=== PATIENT | female | born 1945 | race Caucasian/White ===

== ENCOUNTER → 2017-07-23 | Outpatient (CLI) | payer OTHER, SELFPAY ==
[~2017-07-23] MED LIST: ALBU90OI; ALBU90OI6 INH; AMLO5 PO; AMOCLA875; ASPI325; Amaryl1 MG; Amaryl1 MG PO; CALCA500CH; CHOL10002 PO; CLOP75; CLOP75 PO; CRANBERRY PLUS1 EAC1 PO; CYAN1000 PO; CYCL10 PO; DULO30; DULO60 PO; ETOD400 PO; Econazole Nitra15 GM; FISH1000; FURO20; FURO40 PO; Flovent Diskus50 MCG; Flovent Diskus50 MCG IH; HYDACE5 PO; IBUHYD; K-Dur20 MEQ PO; LORA10; MAGCHL64ER PO; METF500; METF500C PO; OMEP10ER; OMEP20ER; Omeprazole20 M1 PO; POTCHL10ER; Penlac6.6 ML; Super Calcium600 MG PO; TRAM50; TRAM50 PO; VICODIN 5-3001 EACH; VICODIN 5-3001 EACH PO; Ventolin Soln3 ML INH
[2017-07-23 14:19] LABS: BASOPHILS ABSOLUTE AUTO 0.02 K/mm3 (0.00-0.23); BASOPHILS PERCENT AUTO 0 % (0-2); EOSINOPHILS ABSOLUTE AUTO 0.05 K/mm3 (0.00-0.68); EOSINOPHILS PERCENT AUTO 1 % (0-6); Hematocrit 38.2 % (33.0-51.0); Hemoglobin 12.8 g/dL (11.5-16.0); IMMATURE GRAN ABSOLUTE AUTO 0.02 K/mm3 (0.00-0.10); IMMATURE GRAN PERCENT AUTO 0 % (0-1); LYMPHOCYTES ABSOLUTE AUTO 2.31 K/mm3 (0.84-5.20); LYMPHOCYTES PERCENT AUTO 33 % (21-46); MONOCYTES ABSOLUTE AUTO 0.71 K/mm3 (0.16-1.47); MONOCYTES PERCENT AUTO 10 % (4-13); Mean Corpuscular HGB 30.3 pg (26.0-34.0); Mean Corpuscular HGB Conc 33.5 g/dL (31.5-36.5); Mean Corpuscular Volume 90 fL (80-100); Mean Platelet Volume 10.8 fL (9.1-12.4); NEUTROPHILS ABSOLUTE AUTO 3.94 K/mm3 (1.96-9.15); NEUTROPHILS PERCENT AUTO 56 % (41-73); Platelet Count 437 K/mm3 (150-400); RDW Coefficient Variation 13.4 % (11.7-14.2); RDW Standard Deviation 44.1 fL (35.1-46.3); Red Blood Cell Count 4.23 M/mm3 (3.80-5.20); White Blood Cell Count 7.05 K/mm3 (4.00-11.30)
[2017-07-23 14:24] LABS: Bun/Creatinine Ratio 10.8 (12.0-20.0); Calcium, Blood 9.8 mg/dL (8.5-10.1); Creatinine, Blood 1.02 mg/dL (0.40-1.00); Potassium, Blood 4.2 mmol/L (3.5-5.5)
== END | disposition home or self-care (01) ==
LOC: LAB EV 14:14
PROVIDERS: Family Medicine
DX: N39.0 Urinary tract infection, site not specified (principal); R05 Cough
CPT/HCPCS: 80048; 85025; 87077; 87086; 87186

== ENCOUNTER 2018-07-25 11:53 | Day surgery (SDC) | payer OTHER, SELFPAY ==
[~2018-07-25] VITALS: Ht 152.4 cm; Wt 62.6 kg
[~2018-07-25 11:53] MED LIST changes: -CYAN1000 PO; +CYAN500 PO; +GABA300 PO; +LOSA25 PO; +Multiple Vitam1 EAC1 PO; +TURMERIC PO
--- NOTE | 2018-07-25 15:16 | NUR ---
ARRIVED FORM PACU VSS GIVEN COFFEE FETCHED FOR PATIENT.
--- NOTE | 2018-07-25 15:33 | NUR ---
GIVEN RX PER REQUEST FOR PAIN AT [facility] TIME RATES PAIN 09/22
--- NOTE | 2018-07-25 15:58 | NUR ---
DISCHARGED AT THIS TIME WITH ALL BELONGINGS AND DISCHARGE INSTRUCTIONS PATIENT TO RESTART PLAVIX TOMORROW PER DOCTOR AFTER CLARIFICATION. ESCORTED OUT WITH RN IN WHEEL CHAIR
== END 2018-07-25 22:44 | disposition home or self-care (01) ==
LOC: ORSCMMR 11:53 → ORD 13:15 → ORSCMMR 13:15 → ORD 16:00 → ORSCMMR 22:44
PROVIDERS: Orthopaedic Surgery
PROC: 0SBD4ZZ Excision of Left Knee Joint, Percutaneous Endoscopic Approach (ICD-10-PCS; principal; 2018-07-25 13:15)
DX: M23.222 Derangement of posterior horn of medial meniscus due to old tear or injury, left knee (principal); M23.201 Derangement of unspecified lateral meniscus due to old tear or injury, left knee; M22.42 Chondromalacia patellae, left knee; M17.12 Unilateral primary osteoarthritis, left knee; I10 Essential (primary) hypertension; J44.9 Chronic obstructive pulmonary disease, unspecified; K21.9 Gastro-esophageal reflux disease without esophagitis; E11.9 Type 2 diabetes mellitus without complications; Z79.899 Other long term (current) drug therapy
CPT/HCPCS: 82947; J0171; J0330; J0690; J1100; J2250; J2405; J2710; J3010; J7120

== ENCOUNTER 2018-09-01 09:42 | Inpatient (IN) | payer OTHER ==
[~2018-09-01] VITALS: Ht 154.9 cm; Wt 63.5 kg
[2018-09-01 10:42] LABS: BASOPHILS ABSOLUTE AUTO 0.02 K/mm3 (0.00-0.23); BASOPHILS PERCENT AUTO 0 % (0-2); EOSINOPHILS ABSOLUTE AUTO 0.09 K/mm3 (0.00-0.68); EOSINOPHILS PERCENT AUTO 1 % (0-6); Hematocrit 37.9 % (33.0-51.0); Hemoglobin 12.2 g/dL (11.5-16.0); IMMATURE GRAN ABSOLUTE AUTO 0.03 K/mm3 (0.00-0.10); IMMATURE GRAN PERCENT AUTO 0 % (0-1); LYMPHOCYTES ABSOLUTE AUTO 1.83 K/mm3 (0.84-5.20); LYMPHOCYTES PERCENT AUTO 26 % (21-46); MONOCYTES ABSOLUTE AUTO 0.67 K/mm3 (0.16-1.47); MONOCYTES PERCENT AUTO 10 % (4-13); Mean Corpuscular HGB 29.7 pg (26.0-34.0); Mean Corpuscular HGB Conc 32.2 g/dL (31.5-36.5); Mean Corpuscular Volume 92 fL (80-100); Mean Platelet Volume 10.9 fL (9.1-12.4); NEUTROPHILS ABSOLUTE AUTO 4.42 K/mm3 (1.96-9.15); NEUTROPHILS PERCENT AUTO 63 % (41-73); Platelet Count 362 K/mm3 (150-400); RDW Coefficient Variation 12.9 % (11.7-14.2); RDW Standard Deviation 43.8 fL (35.1-46.3); Red Blood Cell Count 4.11 M/mm3 (3.80-5.20); White Blood Cell Count 7.06 K/mm3 (4.00-11.30)
[2018-09-01 11:07] LABS: Alanine Aminotransfer (ALT/SGP 19 U/L (12-78); Albumin, Blood 3.7 g/dL (3.4-5.0); Albumin/Globulin Ratio 1.2 (0.8-1.8); Alk Phos 117 U/L (50-136); Anion Gap 10 mmol/L (6-16); Aspartate Aminotrans (AST/SGOT 14 U/L (12-37); Bilirubin, Total 0.8 mg/dL (0.1-1.0); Blood Urea Nitrogen 18 mg/dL (8-24); Bun/Creatinine Ratio 24.6 (12.0-20.0); CO2, Blood 25 mmol/L (21-32); Calcium, Blood 9.8 mg/dL (8.5-10.1); Chloride, Blood 103 mmol/L (98-108); Creatinine, Blood 0.73 mg/dL (0.40-1.00); Globulin, Blood 3.2 g/dL (2.2-4.0); Glomerular Filtration Rate >60 (60-); Glucose, Blood 250 mg/dL (70-99); Potassium, Blood 4.3 mmol/L (3.5-5.5); Sodium, Blood 138 mmol/L (136-145); Total Protein, Blood 6.9 g/dL (6.4-8.2); Troponin I <0.015 ng/mL (0.000-0.040)
[2018-09-01 12:07] LABS: Source, Urine Clean Catch
[2018-09-01 12:15] LABS: Blood, Urine Neg (Neg); Glucose Qualitative, Urine 1+ (Neg); Ketones, Urine Neg (Neg); Leukocyte Esterase, Urine 1+ (Neg); Nitrite, Urine Neg (Neg); Protein, Urine Neg (Neg); Urobilinogen, Urine NORM (Normal); pH, Urine 6.5 (5.0-8.0)
[2018-09-01 12:24] LABS: Appearance, Urine Clear (Clear); Color, Urine Pale Yellow (P-Yellow)
[2018-09-01 12:27] LABS: Bacteria Rare /hpf; Red Blood Cells, Urine Rare /hpf (0-2); Squamous Epithelial Cells Many /hpf (Few)
[2018-09-01] MEDS ORDERED: CINNAMON PO (13:34)
--- NOTE | 2018-09-01 14:41 | NUR ---
MRI FAXED MRI SHEET TO MRI. STAFF EHRE TO TAKE HER BY W/C TO SCAN. PT ALERT AND COMFORTABLE WITH GOING INTO MRI. CONTINUE POT.
[2018-09-01] MEDS ORDERED: PRAM.125 PO (20:16)
--- NOTE | 2018-09-01 21:21 | NUR ---
PROVIDER CONTACTED- PT REQUESTING HOME DOSE OF MIRAPEX. RAUL JIMENEZ CONTACTED AND ORDERS RECEIVED FOR MIRAPEX DAILY PRN, TAKEN AT HOME.
[2018-09-01] MEDS ORDERED: Omeprazole20 M1 (22:01)
--- NOTE | 2018-09-01 23:00 | NUR ---
PROVIDER CONTACTED PT ALSO REQUESTING HOME DOSE OF OMEPRAZOLE FOR AM WELL ANTACIDS PRN. RAUL JIMENEZ CONTACTED AND ORDERS RECEIVED.
[2018-09-02 05:05] LABS: CHOL/HDL RATIO 4.5; Cholesterol 196 mg/dL (50-200); HDL Cholesterol 44 mg/dL (>39); LDL/HDL RATIO 2.3; Low Density Lipoprotein Chol 100 mg/dL (0-110); Triglycerides 261 mg/dL (30-160); Very Low Density Lipoprot Chol 52 mg/dL (6-32)
--- NOTE | 2018-09-02 06:23 | NUR ---
SHIFT SUMMARY- PT HAS REMAINED AOX4 THROUGHOUT SHIFT. PLEASANT AND COOPERATIVE WITH CARE. BLOOD PRESSURE HYPERTENSIVE THROUGHOUT MUCH OF THE NIGHT, BUT DECREASED THIS AM. ALL OTHER VSS. PT REPORTED SOME HEARTBURN LAST NIGHT THAT DECREASED AFTER DRINKING SOME MILK. STRENGTH IN R LEG AND R HAND HAVE IMPROVED THROUGHOUT THE NIGHT, R FACIAL DROOP STILL NOTED WELL SLURRED SPEECH. PERRLA. DENIES DIZZINESS, LIGHTHEADEDNESS. PT CONTINUES TO AMBULATE WITH ONE PERSON ASSIST TO THE RESTROOM BUT IS UNSTEADY ON HER FEET. PT ENCOURAGED TO CALL FOR ASSISTANCE WITH AMBULATION- INFORMED THAT BED ALARM WILL BE SET FOR HER SAFETY. NO OTHER CHANGES NOTED FROM INITIAL ASSESSMENT. WILL CONTINUE TO MONITOR AND REPORT TO ONCOMING SHIFT RN. BED IN LOW POSITION, CALL LIGHT IN REACH, BED ALARM SET FOR SAFETY.
--- NOTE | 2018-09-02 10:46 | NUR ---
ECHOCARDIOGRAM COMPLETE
--- NOTE | 2018-09-02 11:05 | NUR ---
NEURO. CONSULT CALLED WITH CONSULT REQUEST TO NEURO CLINIC. LEFT A MESSAGE LAST EVENING ON THE MACHINE INSTRUCTED. CALLED THIS AM AT 0940 TO DOUBLE CHECK RECEIPT OF THE CONSULT AND TO INQUIRE ABOUT AVAILABILITY OF DR ZUNIGA. LEFT A SECOND MESSAGE. RECALLED AT 1102. NO ANSWER AT THE CLINIC. WILL CONTINUE TO CALL. CONTINUE POT.
--- NOTE | 2018-09-02 11:07 | NUR ---
CAROT[facility] U/S ASKED FOR A STAT READ LAST NIGHT. NO RESULTS THIS AM. CALLED RADIOLOGY AND ASKED TO HAVE IT READ. TECH WAS GOING TO PUSH TO DR AYALA TO READ. THAT WAS ABOUT 0730. NO RESULTS YET. CONTINUE POT.
--- NOTE | 2018-09-02 15:04 | NUR ---
[facility] and provide care.
--- NOTE | 2018-09-02 18:39 | NUR ---
DR NADIA ZUNIGA CALLED. 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 LET DR MEHTA KNOW THAT HE WILL NOT BE ACCEPTING THE CONSULT. CONTINUE POT.
--- NOTE | 2018-09-02 18:40 | NUR ---
BOWEL CARE PT HAS NOT HAD A BM IN A DAY. SPOUCE REQUESTED THAT SHE RECEIVE PRUNE JUICE. GAVE PT A GLASS OF PRUNE JUICE AFTER DINNER. CONTINU EPOT.
[2018-09-03 04:21] LABS: BASOPHILS ABSOLUTE AUTO 0.03 K/mm3 (0.00-0.23); BASOPHILS PERCENT AUTO 0 % (0-2); EOSINOPHILS ABSOLUTE AUTO 0.21 K/mm3 (0.00-0.68); EOSINOPHILS PERCENT AUTO 2 % (0-6); Hematocrit 39.5 % (33.0-51.0); Hemoglobin 12.5 g/dL (11.5-16.0); IMMATURE GRAN ABSOLUTE AUTO 0.03 K/mm3 (0.00-0.10); IMMATURE GRAN PERCENT AUTO 0 % (0-1); LYMPHOCYTES ABSOLUTE AUTO 3.64 K/mm3 (0.84-5.20); LYMPHOCYTES PERCENT AUTO 41 % (21-46); MONOCYTES ABSOLUTE AUTO 1.31 K/mm3 (0.16-1.47); MONOCYTES PERCENT AUTO 15 % (4-13); Mean Corpuscular HGB Conc 31.6 g/dL (31.5-36.5); Mean Platelet Volume 10.8 fL (9.1-12.4); NEUTROPHILS ABSOLUTE AUTO 3.61 K/mm3 (1.96-9.15); NEUTROPHILS PERCENT AUTO 41 % (41-73); Platelet Count 358 K/mm3 (150-400); RDW Coefficient Variation 12.9 % (11.7-14.2); RDW Standard Deviation 44.7 fL (35.1-46.3); Red Blood Cell Count 4.16 M/mm3 (3.80-5.20); White Blood Cell Count 8.83 K/mm3 (4.00-11.30)
[2018-09-03 04:22] LABS: Mean Corpuscular Volume 95 fL (80-100)
[2018-09-03 04:44] LABS: Alanine Aminotransfer (ALT/SGP 29 U/L (12-78); Albumin, Blood 3.6 g/dL (3.4-5.0); Albumin/Globulin Ratio 1.1 (0.8-1.8); Alk Phos 124 U/L (50-136); Anion Gap 9 mmol/L (6-16); Aspartate Aminotrans (AST/SGOT 31 U/L (12-37); Bilirubin, Total 0.7 mg/dL (0.1-1.0); Blood Urea Nitrogen 19 mg/dL (8-24); Bun/Creatinine Ratio 25.5 (12.0-20.0); CO2, Blood 24 mmol/L (21-32); Calcium, Blood 9.7 mg/dL (8.5-10.1); Chloride, Blood 105 mmol/L (98-108); Creatinine, Blood 0.74 mg/dL (0.40-1.00); Globulin, Blood 3.4 g/dL (2.2-4.0); Glomerular Filtration Rate >60 (60-); Glucose, Blood 103 mg/dL (70-99); Potassium, Blood 4.3 mmol/L (3.5-5.5); Sodium, Blood 138 mmol/L (136-145)
--- NOTE | 2018-09-03 06:22 | NUR ---
SHIFT SUMMARY- PT HAS REMAINED AOX4 THROUGHOUT SHIFT. VSS. PLEASANT AND COOPERATIVE WITH CARE. PT CONTINUES TO AMBULATE WITH ONE PERSON ASSIST AND FWW, GAIT REMAINS UNSTEADY BUT HAS IMPROVED SINCE YESTERDAY. PUPILS REMAIN SLUGGISH BUT EQUALLY RESPONSIVE. EXTREMITY STRENGTH REMAINS EQUAL AND UNCHANGED THROUGHOUT SHIFT. PT DENIES DIZZINESS OR LIGHTHEADEDNESS. PT MEDICATED ONCE FOR LEG RESTLESSNESS AND GENERALIZED PAIN, BOTH OF WHICH RELIEVED WITH ORDERED MEDICATIONS. PT CONTINUES TO HAVE VISION FIELD DEFICITS. CONTINUES TO REQUIRE MUCH EDUCATION ON CURRENT CONDITION AND COURSE OF TREATMENT. PT WITH OCCASIONAL IRRITATION WHEN ATTEMPTS AT EDUCATION ARE MADE. PT HAS RESTED WELL THROUGHOUT MUCH OF THE NIGHT, WAKING EASILY FOR VITAL SIGNS AND CARE. NO OTHER CHANGES FROM INITIAL ASSESSMENT, WILL CONTINUE TO MONITOR AND REPORT TO ONCOMING SHIFT RN. BED IN LOW POSITION, CALL LIGHT IN REACH. BED ALARM SET FOR SAFETY.
--- NOTE | 2018-09-03 07:45 | NUR ---
INITIAL ASSESSMENT: Pt resting in bed with at bedside. LS Clear, HR reg, BT positive. Pulses palp. States that she has some numbness in BLE that is always there. Also states that she has some chronic pain in her back and groin. Will medicate per orders. R pupil slightly more sluggish then L but both reactive. Hand grasps = and strong. Planter flexion and extention = and strong. Poor balance when up. Poor peripheral vision. Pt has some slurred speach. Pt and state that this is not her normal speach. Pt is A/O x4. Pt up to chair after void with one person assist. Strong but poor balance. Will monitor.
[2018-09-03] MEDS ORDERED: ACET325 PO (16:12)
[2018-09-03] MEDS ORDERED: TUMS ULTRA ST1177 MG PO (16:14)
[2018-09-03] MEDS ORDERED: LIDOCAINE PAIN1 EACH TOP (16:15)
[2018-09-03] MEDS ORDERED: ASPI325 PO (16:15)
--- NOTE | 2018-09-03 16:45 | NUR ---
DISHCARGE: Pt had discharge orders to SNF and was accepted to facility. Transport set up and notified. Denies questions. IV discontinued, cath intact. Facility packet filled out. Pt denies questions. Called report to [facility]. Left via w/c. Stable at time of discharge.
== END 2018-09-03 16:44 | DRG 65 ==
LOC: ER 09:42 → PCU 09:43
PROVIDERS: Emergency Medicine; Hospitalist; ADMIT Internal Medicine
DX: I63.9 Cerebral infarction, unspecified (principal); G81.91 Hemiplegia, unspecified affecting right dominant side; I25.10 Atherosclerotic heart disease of native coronary artery without angina pectoris; I10 Essential (primary) hypertension; E11.65 Type 2 diabetes mellitus with hyperglycemia; E78.5 Hyperlipidemia, unspecified; J44.9 Chronic obstructive pulmonary disease, unspecified; M79.7 Fibromyalgia; G89.4 Chronic pain syndrome; M81.0 Age-related osteoporosis without current pathological fracture; K21.9 Gastro-esophageal reflux disease without esophagitis; F32.9 Major depressive disorder, single episode, unspecified; R47.81 Slurred speech; D51.0 Vitamin B12 deficiency anemia due to intrinsic factor deficiency; Z95.5 Presence of coronary angioplasty implant and graft; Z88.8 Allergy status to other drugs, medicaments and biological substances; Z79.84 Long term (current) use of oral hypoglycemic drugs; Z79.02 Long term (current) use of antithrombotics/antiplatelets; Z79.899 Other long term (current) drug therapy; Z87.891 Personal history of nicotine dependence
CPT/HCPCS: 36415; 70450; 70551; 80053; 80061; 81001; 82947; 83036; 84443; 84484; 85025; 87086; 92507; 92523; 93005; 93010; 93306; 93880; 97110; 97116; 97162; 97166; 97530; 97535; 99285-25; G0378; J1650

== ENCOUNTER 2018-10-04 18:14 | Emergency (ER) | payer OTHER ==
[~2018-10-04] VITALS: Ht 154.9 cm; Wt 63.5 kg
[~2018-10-04 18:14] MED LIST changes: +ACET325 PO; +ASPI325 PO; +CINNAMON PO; +LIDOCAINE PAIN1 EACH TOP; +Omeprazole20 M1; +PRAM.125 PO; +TUMS ULTRA ST1177 MG PO
[2018-10-04 20:04] LABS: BASOPHILS ABSOLUTE AUTO 0.04 K/mm3 (0.00-0.23); BASOPHILS PERCENT AUTO 0 % (0-2); EOSINOPHILS ABSOLUTE AUTO 0.01 K/mm3 (0.00-0.68); EOSINOPHILS PERCENT AUTO 0 % (0-6); Hemoglobin 11.7 g/dL (11.5-16.0); IMMATURE GRAN ABSOLUTE AUTO 0.12 K/mm3 (0.00-0.10); IMMATURE GRAN PERCENT AUTO 1 % (0-1); LYMPHOCYTES ABSOLUTE AUTO 1.05 K/mm3 (0.84-5.20); LYMPHOCYTES PERCENT AUTO 8 % (21-46); MONOCYTES ABSOLUTE AUTO 2.24 K/mm3 (0.16-1.47); MONOCYTES PERCENT AUTO 16 % (4-13); Mean Corpuscular HGB 30.5 pg (26.0-34.0); Mean Corpuscular HGB Conc 32.5 g/dL (31.5-36.5); Mean Corpuscular Volume 94 fL (80-100); Mean Platelet Volume 10.8 fL (9.1-12.4); NEUTROPHILS ABSOLUTE AUTO 10.58 K/mm3 (1.96-9.15); NEUTROPHILS PERCENT AUTO 75 % (41-73); Platelet Count 386 K/mm3 (150-400); RDW Coefficient Variation 13.4 % (11.7-14.2); Red Blood Cell Count 3.84 M/mm3 (3.80-5.20); White Blood Cell Count 14.04 K/mm3 (4.00-11.30)
[2018-10-04 20:23] LABS: Alanine Aminotransfer (ALT/SGP 29 U/L (12-78); Albumin, Blood 3.6 g/dL (3.4-5.0); Albumin/Globulin Ratio 0.9 (0.8-1.8); Alk Phos 177 U/L (50-136); Anion Gap 8 mmol/L (6-16); Aspartate Aminotrans (AST/SGOT 27 U/L (12-37); Bilirubin, Total 0.5 mg/dL (0.1-1.0); Blood Urea Nitrogen 18 mg/dL (8-24); Bun/Creatinine Ratio 21.2 (12.0-20.0); CO2, Blood 27 mmol/L (21-32); Calcium, Blood 9.8 mg/dL (8.5-10.1); Chloride, Blood 97 mmol/L (98-108); Creatinine, Blood 0.85 mg/dL (0.40-1.00); Globulin, Blood 3.9 g/dL (2.2-4.0); Glomerular Filtration Rate >60 (60-); Glucose, Blood 125 mg/dL (70-99); Potassium, Blood 4.3 mmol/L (3.5-5.5); Sodium, Blood 132 mmol/L (136-145); Total Protein, Blood 7.5 g/dL (6.4-8.2); Troponin I <0.015 ng/mL (0.000-0.040)
[2018-10-04 20:25] LABS: Acetaminophen, Random 20.1 ug/mL (10.0-30.0)
[2018-10-04 23:29] LABS: Influenza A Positive (NEGATIVE); Influenza B Negative (NEGATIVE)
[2018-10-05 00:04] LABS: Source, Urine Clean Catch
[2018-10-05 00:10] LABS: Bilirubin, Urine Neg (Neg); Blood, Urine Neg (Neg); Glucose Qualitative, Urine Neg (Neg); Ketones, Urine Neg (Neg); Leukocyte Esterase, Urine 1+ (Neg); Nitrite, Urine Neg (Neg); Protein, Urine Neg (Neg); Specific Gravity, Urine 1.005 (1.003-1.022); Urobilinogen, Urine NORM (Normal)
[2018-10-05 00:24] LABS: Appearance, Urine Clear (Clear); Color, Urine Yellow (P-Yellow)
[2018-10-05 00:25] LABS: Bacteria Rare /hpf; Red Blood Cells, Urine Not Seen /hpf (0-2); Squamous Epithelial Cells Few /hpf (Few); White Blood Cells, Urine Rare /hpf (0-5)
[2018-10-05] MEDS ORDERED: Tamiflu75 MG PO (00:31)
== END 2018-10-05 01:00 | disposition home or self-care (01) ==
LOC: ER 18:14
PROVIDERS: Emergency Medicine
DX: J10.1 Influenza due to other identified influenza virus with other respiratory manifestations (principal); R07.9 Chest pain, unspecified; Z88.8 Allergy status to other drugs, medicaments and biological substances; Z88.5 Allergy status to narcotic agent; Z88.1 Allergy status to other antibiotic agents; Z79.899 Other long term (current) drug therapy; Z79.84 Long term (current) use of oral hypoglycemic drugs; Z79.82 Long term (current) use of aspirin; E78.5 Hyperlipidemia, unspecified; I25.10 Atherosclerotic heart disease of native coronary artery without angina pectoris; F32.9 Major depressive disorder, single episode, unspecified; J45.909 Unspecified asthma, uncomplicated; Z87.891 Personal history of nicotine dependence
CPT/HCPCS: 36415; 71046; 80053; 81001; 83605; 83735; 83880; 84484; 85025; 87086; 87804; 93005; 93010; 94640; 96361; 96374; 96376; 99285-25; G0480; J1885; J7030

== ENCOUNTER → 2018-11-14 | Outpatient (CLI) | payer OTHER ==
[~2018-11-14] MED LIST changes: +Tamiflu75 MG PO
== END | disposition home or self-care (01) ==
LOC: LAB SHORT 12:47 → LAB EV 12:47
DX: R35.0 Frequency of micturition (principal)
CPT/HCPCS: 87077; 87086; 87186

== ENCOUNTER → 2019-07-08 | Outpatient (CLI) | payer OTHER | END | disposition home or self-care (01) | LOC: LAB SHORT 13:45 → LAB EV 13:45 | DX: R30.0 Dysuria (principal) | CPT/HCPCS: 87086 ==

== ENCOUNTER 2020-02-24 04:28 | Emergency (ER) | payer OTHER ==
[~2020-02-24] VITALS: Ht 152.4 cm; Wt 60.8 kg
[2020-02-24] MEDS ORDERED: Imdur30 MG PO (04:44)
[2020-02-24] MEDS ORDERED: OLMESARTAN MEDO20 MG PO (04:44)
[2020-02-24] MEDS ORDERED: NITROGLYCERIN0.4 M3 SL (04:44)
[2020-02-24 04:54] LABS: BASOPHILS ABSOLUTE AUTO 0.06 K/mm3 (0.00-0.23); BASOPHILS PERCENT AUTO 1 % (0-2); EOSINOPHILS ABSOLUTE AUTO 0.23 K/mm3 (0.00-0.68); EOSINOPHILS PERCENT AUTO 2 % (0-6); Hematocrit 38.4 % (33.0-51.0); Hemoglobin 12.2 g/dL (11.5-16.0); IMMATURE GRAN ABSOLUTE AUTO 0.06 K/mm3 (0.00-0.10); IMMATURE GRAN PERCENT AUTO 1 % (0-1); LYMPHOCYTES ABSOLUTE AUTO 3.41 K/mm3 (0.84-5.20); LYMPHOCYTES PERCENT AUTO 27 % (21-46); MONOCYTES ABSOLUTE AUTO 1.07 K/mm3 (0.16-1.47); MONOCYTES PERCENT AUTO 9 % (4-13); Mean Corpuscular HGB Conc 31.8 g/dL (31.5-36.5); Mean Corpuscular Volume 94 fL (80-100); Mean Platelet Volume 11.6 fL (9.1-12.4); NEUTROPHILS ABSOLUTE AUTO 7.61 K/mm3 (1.96-9.15); NEUTROPHILS PERCENT AUTO 61 % (41-73); Platelet Count 399 K/mm3 (150-400); RDW Coefficient Variation 12.1 % (11.7-14.2); RDW Standard Deviation 42.3 fL (35.1-46.3); Red Blood Cell Count 4.07 M/mm3 (3.80-5.20); White Blood Cell Count 12.44 K/mm3 (4.00-11.30)
[2020-02-24 05:17] LABS: Alanine Aminotransfer (ALT/SGP 20 U/L (12-78); Albumin, Blood 3.6 g/dL (3.4-5.0); Albumin/Globulin Ratio 1.1 (0.8-1.8); Alk Phos 151 U/L (50-136); Anion Gap 4 mmol/L (6-16); Aspartate Aminotrans (AST/SGOT 15 U/L (12-37); Bilirubin, Total 0.4 mg/dL (0.1-1.0); Blood Urea Nitrogen 21 mg/dL (8-24); Bun/Creatinine Ratio 17.1 (12.0-20.0); CO2, Blood 31 mmol/L (21-32); Calcium, Blood 9.6 mg/dL (8.5-10.1); Chloride, Blood 101 mmol/L (98-108); Creatinine, Blood 1.23 mg/dL (0.40-1.00); Globulin, Blood 3.4 g/dL (2.2-4.0); Glomerular Filtration Rate 45 (60-); Glucose, Blood 280 mg/dL (70-99); Potassium, Blood 4.2 mmol/L (3.5-5.5); Sodium, Blood 136 mmol/L (136-145); Troponin I <0.015 ng/mL (0.000-0.040)
== END 2020-02-24 06:10 | disposition home or self-care (01) ==
LOC: ER 04:28
PROVIDERS: Emergency Medicine
DX: R07.9 Chest pain, unspecified (principal); I10 Essential (primary) hypertension; K21.9 Gastro-esophageal reflux disease without esophagitis; F32.9 Major depressive disorder, single episode, unspecified; J45.909 Unspecified asthma, uncomplicated; E78.5 Hyperlipidemia, unspecified; M79.7 Fibromyalgia; I25.119 Atherosclerotic heart disease of native coronary artery with unspecified angina pectoris; Z88.1 Allergy status to other antibiotic agents; Z88.8 Allergy status to other drugs, medicaments and biological substances; Z88.6 Allergy status to analgesic agent; Z88.5 Allergy status to narcotic agent; Z79.84 Long term (current) use of oral hypoglycemic drugs; Z79.899 Other long term (current) drug therapy; Z79.02 Long term (current) use of antithrombotics/antiplatelets; Z79.82 Long term (current) use of aspirin; Z87.891 Personal history of nicotine dependence; Z95.5 Presence of coronary angioplasty implant and graft
CPT/HCPCS: 71045; 80053; 84484; 85025; 93005; 93010; 96374; 96376; 99285-25

== ENCOUNTER 2020-03-31 05:47 | Day surgery (SDC) | payer OTHER ==
[~2020-03-31] VITALS: Ht 160 cm; Wt 60.0 kg
[~2020-03-31 05:47] MED LIST changes: +ASPI81CH PO; +ESOM20 PO; +IPRAT-ALBUT 0.5-3 ML INH; +Imdur30 MG PO; +LIVALO4 MG PO; +MAGNESIUM OXID500 MG PO; +NITROGLYCERIN0.4 M3 SL; +Norco 5-325 Ta1 EACH PO; +OLMESARTAN MEDO20 MG PO; +SYMBICORT 160-4.6 GM INH; -VICODIN 5-3001 EACH PO; +VITAMIN D310 MC4 PO
[2020-03-31] MEDS ORDERED: GLIP2.5ER PO (06:28)
--- NOTE | 2020-03-31 09:10 | NUR ---
Pt received from Salma Mckeon RN. Pt is denies pain she is in recliner with right radial access. Site wnl, Pt alert and slightly drowsy, spouse at bedside. Dr.D Bridges at bedside talking to patient regarding out come of procedure and plan. Pt and spouse verbalized understanding. VSS stable.
--- NOTE | 2020-03-31 09:15 | NUR ---
NS 75 cc/hr with 700 ml yakelin. infusing into left AC.
--- NOTE | 2020-03-31 10:14 | NUR ---
I spoke to Mike at Dr. Franklin office regarding appointments with Rigoberto and follow up procedure in two weeks. Office will call regarding appointment follow up. Pt eating breakfast, call light given.
--- NOTE | 2020-03-31 11:06 | NUR ---
Pt stable 2 cc air removed from TR-Band. Pt resting.
--- NOTE | 2020-03-31 11:30 | NUR ---
Pt with tr-band removed 3cc of air. Pt stable denies pain.
--- NOTE | 2020-03-31 11:40 | NUR ---
1140 All air out of tr-band Pt sitting in chair up to brp geovanny well voided. Pt resting with TR-band post ambulating. IV #20 removed from Left A/C cath intact. Pt sitting post all air removed from tr-band with slight ooze of bleed less then 5 cc.
--- NOTE | 2020-03-31 12:15 | NUR ---
Pt right tr-band area cleansed w/ warm water patted dry applied cloth dot to access site. IV removed cath intact. Pt denies pain. Allowing pt to rest post dressing. VSS b/p slightly elevated pt states she only took half her medications today.
--- NOTE | 2020-03-31 12:43 | NUR ---
1240 Pt discharged via wheelchair to private auto. Reviewed all discharge instruction with Pillo and patient. Pt in good spirits.
== END 2020-03-31 12:40 | disposition home or self-care (01) ==
LOC: MHTC 05:47
PROC: 4A023N7 Measurement of Cardiac Sampling and Pressure, Left Heart, Percutaneous Approach (ICD-10-PCS; principal; 2020-03-31)
PROC: B201YZZ Plain Radiography of Multiple Coronary Arteries using Other Contrast (ICD-10-PCS; principal; 2020-03-31)
DX: I25.118 Atherosclerotic heart disease of native coronary artery with other forms of angina pectoris (principal); T82.855A Stenosis of coronary artery stent, initial encounter; Y83.1 Surgical operation with implant of artificial internal device as the cause of abnormal reaction of the patient, or of later complication, without mention of misadventure at the time of the procedure; E11.9 Type 2 diabetes mellitus without complications; J43.9 Emphysema, unspecified; I11.0 Hypertensive heart disease with heart failure; I50.9 Heart failure, unspecified; Z88.1 Allergy status to other antibiotic agents; Z87.891 Personal history of nicotine dependence; Z88.5 Allergy status to narcotic agent; Z88.8 Allergy status to other drugs, medicaments and biological substances; Z79.84 Long term (current) use of oral hypoglycemic drugs; Z88.6 Allergy status to analgesic agent
CPT/HCPCS: 76937; 85347; 92920; 92978; 93458; 99152; 99153; A9270-GY; C1725; C1753; C1769; C1887; C1894; J1644; J2250; J3010; J7030; J7050; Q9967

== ENCOUNTER → 2020-04-07 | Outpatient (CLI) | payer OTHER ==
[~2020-04-07] MED LIST changes: +GLIP2.5ER PO
[2020-04-07 14:41] LABS: BASOPHILS ABSOLUTE AUTO 0.04 K/mm3 (0.00-0.23); BASOPHILS PERCENT AUTO 1 % (0-2); EOSINOPHILS ABSOLUTE AUTO 0.22 K/mm3 (0.00-0.68); EOSINOPHILS PERCENT AUTO 3 % (0-6); Hematocrit 40.4 % (33.0-51.0); Hemoglobin 13.3 g/dL (11.5-16.0); IMMATURE GRAN ABSOLUTE AUTO 0.02 K/mm3 (0.00-0.10); IMMATURE GRAN PERCENT AUTO 0 % (0-1); LYMPHOCYTES ABSOLUTE AUTO 2.67 K/mm3 (0.84-5.20); LYMPHOCYTES PERCENT AUTO 34 % (21-46); MONOCYTES ABSOLUTE AUTO 0.88 K/mm3 (0.16-1.47); MONOCYTES PERCENT AUTO 11 % (4-13); Mean Corpuscular HGB 30.2 pg (26.0-34.0); Mean Corpuscular HGB Conc 32.9 g/dL (31.5-36.5); Mean Corpuscular Volume 92 fL (80-100); Mean Platelet Volume 11.2 fL (9.1-12.4); NEUTROPHILS ABSOLUTE AUTO 4.08 K/mm3 (1.96-9.15); NEUTROPHILS PERCENT AUTO 52 % (41-73); Platelet Count 383 K/mm3 (150-400); RDW Coefficient Variation 12.7 % (11.7-14.2); RDW Standard Deviation 42.3 fL (35.1-46.3); Red Blood Cell Count 4.41 M/mm3 (3.80-5.20); White Blood Cell Count 7.91 K/mm3 (4.00-11.30)
[2020-04-07 14:58] LABS: Alanine Aminotransfer (ALT/SGP 34 U/L (12-78); Albumin, Blood 4.5 g/dL (3.4-5.0); Albumin/Globulin Ratio 1.2 (0.8-1.8); Alk Phos 165 U/L (40-126); Anion Gap 8 mmol/L (6-16); Aspartate Aminotrans (AST/SGOT 23 U/L (12-37); Bilirubin, Total 0.6 mg/dL (0.1-1.0); Blood Urea Nitrogen 24 mg/dL (8-24); Bun/Creatinine Ratio 21.6 (12.0-20.0); CO2, Blood 29 mmol/L (21-32); Calcium, Blood 10.9 mg/dL (8.5-10.1); Chloride, Blood 94 mmol/L (98-108); Creatinine, Blood 1.11 mg/dL (0.40-1.00); Globulin, Blood 3.8 g/dL (2.2-4.0); Glomerular Filtration Rate 48 (60-); Glucose, Blood 226 mg/dL (70-99); Potassium, Blood 4.8 mmol/L (3.5-5.5); Sodium, Blood 131 mmol/L (136-145); Total Protein, Blood 8.3 g/dL (6.4-8.2)
[2020-04-07 14:59] LABS: Troponin I < 0.040 ng/mL (0.000-0.040)
== END | disposition home or self-care (01) ==
LOC: LAB EV 14:35 → LAB SHORT 14:35
PROVIDERS: Physician Assistant
DX: R07.89 Other chest pain (principal)
CPT/HCPCS: 80053; 84484; 85025

== ENCOUNTER 2021-01-30 19:52 | Emergency (ER) | payer OTHER ==
[~2021-01-30] VITALS: Ht 152.4 cm; Wt 57.6 kg
[~2021-01-30 19:52] MED LIST changes: +GLIP5 PO; +OLME20 PO; +SYMBICORT 160-4.6 GM; +TIOT18 INH
[2021-01-30] MEDS ORDERED: Tylenol325 MG PO (22:49)
== END 2021-01-30 23:21 | disposition home or self-care (01) ==
LOC: ER 19:52
DX: S42.212A Unspecified displaced fracture of surgical neck of left humerus, initial encounter for closed fracture (principal); E78.5 Hyperlipidemia, unspecified; I10 Essential (primary) hypertension; Z88.1 Allergy status to other antibiotic agents; Z88.6 Allergy status to analgesic agent; Z88.5 Allergy status to narcotic agent; Z87.891 Personal history of nicotine dependence
CPT/HCPCS: 29105; 73060; 96374-59; 96375-59; 99283-25; A9270; J1170; J2270

== ENCOUNTER → 2021-03-08 | Outpatient (CLI) | payer OTHER ==
[~2021-03-08] MED LIST changes: +Tylenol325 MG PO
== END | disposition home or self-care (01) ==
LOC: LAB SHORT 07:39 → LAB 07:39
DX: B35.1 Tinea unguium (principal)
CPT/HCPCS: 88305; 88312

== ENCOUNTER → 2021-04-06 | Outpatient (CLI) | payer OTHER | END | disposition home or self-care (01) | LOC: LAB SHORT 17:53 | DX: N39.0 Urinary tract infection, site not specified (principal) | CPT/HCPCS: 87077; 87086; 87186 ==

== ENCOUNTER → 2021-09-07 | Outpatient (CLI) | payer OTHER | END | disposition home or self-care (01) | LOC: LAB SHORT 15:01 | DX: L97.519 Non-pressure chronic ulcer of other part of right foot with unspecified severity (principal) | CPT/HCPCS: 88305; 88312 ==

== ENCOUNTER → 2021-09-07 | Outpatient (CLI) | payer OTHER | END | disposition home or self-care (01) | LOC: LAB SHORT 13:20 → LAB 13:20 | DX: L08.0 Pyoderma (principal) | CPT/HCPCS: 87070; 87205 ==

== ENCOUNTER → 2021-10-31 | Outpatient (CLI) | payer OTHER ==
[2021-10-31 13:41] LABS: BASOPHILS ABSOLUTE AUTO 0.04 K/mm3 (0.00-0.23); BASOPHILS PERCENT AUTO 0 % (0-2); EOSINOPHILS ABSOLUTE AUTO 0.13 K/mm3 (0.00-0.68); EOSINOPHILS PERCENT AUTO 1 % (0-6); Hematocrit 33.8 % (33.0-51.0); Hemoglobin 11.1 g/dL (11.5-16.0); IMMATURE GRAN ABSOLUTE AUTO 0.04 K/mm3 (0.00-0.10); IMMATURE GRAN PERCENT AUTO 0 % (0-1); LYMPHOCYTES PERCENT AUTO 14 % (21-46); MONOCYTES ABSOLUTE AUTO 1.33 K/mm3 (0.16-1.47); MONOCYTES PERCENT AUTO 11 % (4-13); Mean Corpuscular HGB 29.9 pg (26.0-34.0); Mean Corpuscular HGB Conc 32.8 g/dL (31.5-36.5); Mean Corpuscular Volume 91 fL (80-100); Mean Platelet Volume 10.8 fL (9.1-12.4); NEUTROPHILS ABSOLUTE AUTO 9.37 K/mm3 (1.96-9.15); NEUTROPHILS PERCENT AUTO 74 % (41-73); Platelet Count 483 K/mm3 (150-400); RDW Coefficient Variation 12.7 % (11.7-14.2); RDW Standard Deviation 42.2 fL (35.1-46.3); Red Blood Cell Count 3.71 M/mm3 (3.80-5.20); White Blood Cell Count 12.61 K/mm3 (4.00-11.30)
[2021-10-31 14:37] LABS: Alanine Aminotransfer (ALT/SGP 36 U/L (12-78); Albumin, Blood 3.2 g/dL (3.4-5.0); Albumin/Globulin Ratio 0.8 (0.8-1.8); Alk Phos 336 U/L (50-136); Anion Gap 5 mmol/L (6-16); Aspartate Aminotrans (AST/SGOT 15 U/L (12-37); Bilirubin, Total 0.7 mg/dL (0.1-1.0); Blood Urea Nitrogen 19 mg/dL (8-24); Bun/Creatinine Ratio 24.8 (12.0-20.0); CO2, Blood 29 mmol/L (21-32); Calcium, Blood 10.2 mg/dL (8.5-10.1); Chloride, Blood 99 mmol/L (98-108); Creatinine, Blood 0.77 mg/dL (0.40-1.00); Globulin, Blood 4.1 g/dL (2.2-4.0); Glomerular Filtration Rate >60 (60-); Glucose, Blood 210 mg/dL (70-99); Magnesium, Blood 2.2 mg/dL (1.6-2.4); Potassium, Blood 4.7 mmol/L (3.5-5.5); Sodium, Blood 133 mmol/L (136-145); Total Protein, Blood 7.3 g/dL (6.4-8.2)
== END ==
LOC: LAB SHORT 13:37
PROVIDERS: Physician Assistant
DX: R53.83 Other fatigue (principal)
CPT/HCPCS: 80053; 83735; 84443; 85025

== ENCOUNTER → 2021-11-30 | Outpatient (CLI) | payer OTHER ==
[2021-11-30 13:52] LABS: Creatinine Urine 31.1 mg/dL (27.00-270.00)
[2021-11-30 15:01] LABS: Calcium, Urine 14.3 mg/dL (< 17.5); Calcium, Urine Calculation 300.3 mg/24hrs (42.0-353.0)
== END | disposition home or self-care (01) ==
LOC: LAB SHORT 11:00
PROVIDERS: Internal Medicine Endocrinology, Diabetes & Metabolism
DX: E21.0 Primary hyperparathyroidism (principal)
CPT/HCPCS: 81050; 82340; 82570

== ENCOUNTER 2022-01-09 19:49 | Emergency (ER) | payer OTHER ==
[~2022-01-09] VITALS: Ht 149.9 cm; Wt 61.2 kg
[2022-01-09 20:35] LABS: Hematocrit 36.5 % (33.0-51.0); Hemoglobin 11.8 g/dL (11.5-16.0); Mean Corpuscular HGB 28.5 pg (26.0-34.0); Mean Corpuscular HGB Conc 32.3 g/dL (31.5-36.5); Mean Corpuscular Volume 88 fL (80-100); Mean Platelet Volume 10.6 fL (9.1-12.4); Platelet Count 469 K/mm3 (150-400); RDW Coefficient Variation 15.3 % (11.7-14.2); RDW Standard Deviation 49.4 fL (35.1-46.3); Red Blood Cell Count 4.14 M/mm3 (3.80-5.20); White Blood Cell Count 15.37 K/mm3 (4.00-11.30)
[2022-01-09 20:54] LABS: Albumin, Blood 3.6 g/dL (3.4-5.0); Albumin/Globulin Ratio 1.1 (0.8-1.8); Bilirubin, Total 0.4 mg/dL (0.1-1.0); Bun/Creatinine Ratio 25.7 (12.0-20.0); Calcium, Blood 10.4 mg/dL (8.5-10.1); Creatinine, Blood 1.09 mg/dL (0.40-1.00); Globulin, Blood 3.4 g/dL (2.2-4.0)
[2022-01-09 21:47] LABS: BAND PERCENT MAN 1 % (0-8); BASOPHILS PERCENT MAN 0 % (0-2); EOSINOPHILS PERCENT MAN 0 % (0-6); LYMPHOCYTES % ATYPICAL MANUAL 1 % (0-0); LYMPHOCYTES ABSOLUTE MAN 4.76 K/mm3 (0.84-5.20); LYMPHOCYTES PERCENT MAN 30 % (21-46); METAMYELOCYTE ABSOLUTE MAN 0.15 K/mm3 (0.00-0.00); METAMYELOCYTE PERCENT MAN 1 % (0-0); MONOCYTES ABSOLUTE MAN 1.69 K/mm3 (0.16-1.47); MONOCYTES PERCENT MAN 11 % (4-13); NEUTROPHILS ABSOLUTE MAN 8.76 K/mm3 (1.96-9.15); SEG NEUTROPHILS PERCENT MAN 56 % (41-73); TOTAL CELLS COUNTED 100
== END 2022-01-09 23:22 | disposition home or self-care (01) ==
LOC: ER 19:49
PROVIDERS: Student in an Organized Health Care Education/Training Program
DX: R07.9 Chest pain, unspecified (principal); E78.5 Hyperlipidemia, unspecified; I25.10 Atherosclerotic heart disease of native coronary artery without angina pectoris; K21.9 Gastro-esophageal reflux disease without esophagitis; I10 Essential (primary) hypertension; Z79.899 Other long term (current) drug therapy; Z79.82 Long term (current) use of aspirin; Z79.4 Long term (current) use of insulin; Z88.8 Allergy status to other drugs, medicaments and biological substances
CPT/HCPCS: 36415; 71045; 80053; 83880; 84484; 85025

== ENCOUNTER 2022-03-08 07:26 | Emergency (ER) | payer OTHER ==
[~2022-03-08] VITALS: Ht 149.9 cm; Wt 60.3 kg
[2022-03-08] MEDS ORDERED: PRED5 PO (08:24)
[2022-03-08 08:32] LABS: BASOPHILS ABSOLUTE AUTO 0.04 K/mm3 (0.00-0.23); BASOPHILS PERCENT AUTO 0 % (0-2); EOSINOPHILS ABSOLUTE AUTO 0.01 K/mm3 (0.00-0.68); EOSINOPHILS PERCENT AUTO 0 % (0-6); Hematocrit 31.9 % (33.0-51.0); Hemoglobin 10.1 g/dL (11.5-16.0); IMMATURE GRAN ABSOLUTE AUTO 0.12 K/mm3 (0.00-0.10); IMMATURE GRAN PERCENT AUTO 1 % (0-1); LYMPHOCYTES ABSOLUTE AUTO 2.79 K/mm3 (0.84-5.20); LYMPHOCYTES PERCENT AUTO 13 % (21-46); MONOCYTES ABSOLUTE AUTO 2.03 K/mm3 (0.16-1.47); MONOCYTES PERCENT AUTO 10 % (4-13); Mean Corpuscular HGB 27.8 pg (26.0-34.0); Mean Corpuscular HGB Conc 31.7 g/dL (31.5-36.5); Mean Corpuscular Volume 88 fL (80-100); Mean Platelet Volume 11.6 fL (9.1-12.4); NEUTROPHILS ABSOLUTE AUTO 16.31 K/mm3 (1.96-9.15); NEUTROPHILS PERCENT AUTO 77 % (41-73); Platelet Count 451 K/mm3 (150-400); RDW Coefficient Variation 14.2 % (11.7-14.2); RDW Standard Deviation 45.5 fL (35.1-46.3); Red Blood Cell Count 3.63 M/mm3 (3.80-5.20)
[2022-03-08 08:41] LABS: Albumin, Blood 3.4 g/dL (3.4-5.0); Albumin/Globulin Ratio 1.1 (0.8-1.8); Bilirubin, Total 0.6 mg/dL (0.1-1.0); Bun/Creatinine Ratio 48.6 (12.0-20.0); Creatinine, Blood 0.8 mg/dL (0.40-1.00); Globulin, Blood 3.1 g/dL (2.2-4.0); Potassium, Blood 4.8 mmol/L (3.5-5.5); Total Protein, Blood 6.5 g/dL (6.4-8.2)
[2022-03-08] MEDS ORDERED: ONDA4ODT MM (11:38)
== END 2022-03-08 12:05 | disposition home or self-care (01) ==
LOC: ER 07:26
PROVIDERS: Emergency Medicine
DX: R07.9 Chest pain, unspecified (principal); R10.9 Unspecified abdominal pain; E78.5 Hyperlipidemia, unspecified; I25.10 Atherosclerotic heart disease of native coronary artery without angina pectoris; K21.9 Gastro-esophageal reflux disease without esophagitis; I10 Essential (primary) hypertension; Z79.899 Other long term (current) drug therapy; Z88.8 Allergy status to other drugs, medicaments and biological substances; Z79.52 Long term (current) use of systemic steroids; Z79.82 Long term (current) use of aspirin; Z87.891 Personal history of nicotine dependence
CPT/HCPCS: 36415; 71045; 74175; 80053; 84484; 85025; 93005; 93010; 99285-25; A9270; Q9967

== ENCOUNTER 2022-03-21 10:33 | Day surgery (SDC) | payer OTHER ==
[~2022-03-21] VITALS: Ht 152.4 cm; Wt 60.5 kg
[~2022-03-21 10:33] MED LIST changes: +Estrace Vagin42.5 GM VAG; +INSULANI SC; +NOVOLIN 70100 UNIT/4 SC; +ONDA4ODT MM; +PRED5 PO; +REPATHA SU140 MG/1 M SC
--- NOTE | 2022-03-21 18:41 | NUR ---
DISCHARGE REVIEWED WITH PT AND , BOTH VERBALIZE UNDERSTANDING OF INSTRUCTIONS. NO QUESTIONS AT THIS TIME. ARM BOARD PLACED ON R ARM AND PT UP TO BATHROOM.
--- NOTE | 2022-03-21 18:50 | NUR ---
PT UP TO BATHROOM, GROIN SITE STABLE. R RADIAL SITE STABLE WELL. PT GETTING DRESSED WITH ASSISTANCE FROM .
--- NOTE | 2022-03-21 19:05 | NUR ---
PT DRESSED BOTH GROIN AND RADIAL SITE STABLE. TR BAND REMOVED, AREA CLEANSED AND CLOTH DOT PLACED. ARM BOARD PLACED AND PT PLACED IN ARM SLING. PT TO PRIVATE VEHICLE PER W/C WITH ONE STAFF.
== END 2022-03-21 19:00 | disposition home or self-care (01) ==
LOC: MHTC 10:33
DX: K55.1 Chronic vascular disorders of intestine (principal); J44.9 Chronic obstructive pulmonary disease, unspecified; E78.5 Hyperlipidemia, unspecified; I10 Essential (primary) hypertension; E11.51 Type 2 diabetes mellitus with diabetic peripheral angiopathy without gangrene; M35.3 Polymyalgia rheumatica; I25.2 Old myocardial infarction; K21.9 Gastro-esophageal reflux disease without esophagitis; Z87.891 Personal history of nicotine dependence; Z88.1 Allergy status to other antibiotic agents; Z88.8 Allergy status to other drugs, medicaments and biological substances; Z79.82 Long term (current) use of aspirin; Z79.4 Long term (current) use of insulin; Z79.899 Other long term (current) drug therapy
CPT/HCPCS: 76937; 82947; 99152; 99153; C1725; C1760; C1769; C1876; C1887; C1894; J1644; J2250; J3010; J7030; Q9967

== ENCOUNTER 2022-05-15 18:34 | Emergency (ER) | payer OTHER ==
[~2022-05-15] VITALS: Ht 149.9 cm; Wt 60.3 kg
[2022-05-15 19:53] LABS: BASOPHILS ABSOLUTE AUTO 0.03 K/mm3 (0.00-0.23); BASOPHILS PERCENT AUTO 0 % (0-2); EOSINOPHILS ABSOLUTE AUTO 0.04 K/mm3 (0.00-0.68); EOSINOPHILS PERCENT AUTO 0 % (0-6); Hematocrit 24.9 % (33.0-51.0); Hemoglobin 7.5 g/dL (11.5-16.0); IMMATURE GRAN ABSOLUTE AUTO 0.05 K/mm3 (0.00-0.10); IMMATURE GRAN PERCENT AUTO 0 % (0-1); LYMPHOCYTES ABSOLUTE AUTO 1.58 K/mm3 (0.84-5.20); LYMPHOCYTES PERCENT AUTO 12 % (21-46); MONOCYTES ABSOLUTE AUTO 1.14 K/mm3 (0.16-1.47); MONOCYTES PERCENT AUTO 8 % (4-13); Mean Corpuscular HGB 24.2 pg (26.0-34.0); Mean Corpuscular HGB Conc 30.1 g/dL (31.5-36.5); Mean Corpuscular Volume 80 fL (80-100); NEUTROPHILS ABSOLUTE AUTO 10.85 K/mm3 (1.96-9.15); NEUTROPHILS PERCENT AUTO 79 % (41-73); Platelet Count 546 K/mm3 (150-400); RDW Coefficient Variation 15.2 % (11.7-14.2); RDW Standard Deviation 43.8 fL (35.1-46.3); White Blood Cell Count 13.69 K/mm3 (4.00-11.30)
[2022-05-15 20:20] LABS: Albumin, Blood 3.6 g/dL (3.4-5.0); Albumin/Globulin Ratio 1.1 (0.8-1.8); Bilirubin, Total 0.3 mg/dL (0.1-1.0); Bun/Creatinine Ratio 28.2 (12.0-20.0); Calcium, Blood 9.9 mg/dL (8.5-10.1); Creatinine, Blood 0.85 mg/dL (0.40-1.00); Globulin, Blood 3.4 g/dL (2.2-4.0); Potassium, Blood 4.2 mmol/L (3.5-5.5)
== END 2022-05-16 00:28 | disposition home or self-care (01) ==
LOC: ER 18:34
PROVIDERS: Student in an Organized Health Care Education/Training Program
DX: D50.9 Iron deficiency anemia, unspecified (principal); E78.5 Hyperlipidemia, unspecified; I25.10 Atherosclerotic heart disease of native coronary artery without angina pectoris; K21.9 Gastro-esophageal reflux disease without esophagitis; M79.7 Fibromyalgia; I10 Essential (primary) hypertension; J45.909 Unspecified asthma, uncomplicated; Z88.8 Allergy status to other drugs, medicaments and biological substances; Z88.1 Allergy status to other antibiotic agents; Z79.899 Other long term (current) drug therapy; Z79.84 Long term (current) use of oral hypoglycemic drugs; Z79.02 Long term (current) use of antithrombotics/antiplatelets; Z79.82 Long term (current) use of aspirin; Z87.891 Personal history of nicotine dependence
CPT/HCPCS: 36415; 80053; 85025; 86850; 86900; 86901; 86923; 93005; 93010; J7030; P9016

== ENCOUNTER → 2023-02-17 | Outpatient (CLI) | payer OTHER ==
[~2023-02-17] MED LIST changes: +ALEN70 PO; +NOVOLOG FL100 UNIT/2 SC
== END | disposition home or self-care (01) ==
LOC: LAB 12:04 → LAB SHORT 12:04
DX: N39.0 Urinary tract infection, site not specified (principal)
CPT/HCPCS: 87077; 87086; 87186

== ENCOUNTER 2023-05-18 10:34 | Day surgery (SDC) | payer OTHER ==
[~2023-05-18] VITALS: Ht 149.9 cm; Wt 57.4 kg
[2023-05-18] MEDS ORDERED: FREESTYLE LIBR1 EAC7 (12:00)
[2023-05-18] MEDS ORDERED: REPATHA SU140 MG/1 M (12:00)
[2023-05-18] MEDS ORDERED: ETOD200 (12:00)
[2023-05-18] MEDS ORDERED: Isosorbide Mono30 MG (12:00)
[2023-05-18] MEDS ORDERED: TRULICITY0.75 MG/01 (12:01)
[2023-05-18 13:48] VITALS: BP 149/87
--- NOTE | 2023-05-18 13:49 | NUR ---
05/18/23 1349 Rylee Hopkins IV. PT TOLERATED WELL. CATH INTACT. COBAN/GAUZE IN PLACE
== END 2023-05-18 13:46 | disposition home or self-care (01) ==
LOC: ORSCSDS 10:34
PROVIDERS: Internal Medicine Gastroenterology
PROC: 0DJ08ZZ Inspection of Upper Intestinal Tract, Via Natural or Artificial Opening Endoscopic (ICD-10-PCS; principal; 2023-05-18 12:00)
DX: D50.9 Iron deficiency anemia, unspecified (principal); K44.9 Diaphragmatic hernia without obstruction or gangrene; I25.10 Atherosclerotic heart disease of native coronary artery without angina pectoris; I10 Essential (primary) hypertension; J44.9 Chronic obstructive pulmonary disease, unspecified; E11.9 Type 2 diabetes mellitus without complications; Z86.73 Personal history of transient ischemic attack (TIA), and cerebral infarction without residual deficits; I21.9 Acute myocardial infarction, unspecified; Z79.85 Long-term (current) use of injectable non-insulin antidiabetic drugs; Z79.02 Long term (current) use of antithrombotics/antiplatelets; Z79.899 Other long term (current) drug therapy
CPT/HCPCS: 82947; J2704; J7120

== ENCOUNTER → 2024-06-05 | Outpatient (CLI) | payer OTHER ==
[~2024-06-05] MED LIST changes: +ETOD200; +FREESTYLE LIBR1 EAC7; +Isosorbide Mono30 MG; +REPATHA SU140 MG/1 M; +TRULICITY0.75 MG/01
[2024-06-05 16:03] LABS: Source, Urine Clean Catch
[2024-06-05 16:04] LABS: Bacteria Not Seen /hpf; Red Blood Cells, Urine 0-2 /hpf (0-2); Squamous Epithelial Cells Mod /hpf (Few); White Blood Cells, Urine Not Seen /hpf (0-5)
== END ==
LOC: LAB 16:00 → LAB SHORT 16:00
PROVIDERS: Chiropractor
DX: M54.50 Low back pain, unspecified (principal)
CPT/HCPCS: 81015

== ENCOUNTER 2024-08-18 11:54 | Day surgery (SDC) | payer OTHER ==
[2024-08-18] VITALS (10 sets, daily range): BP systolic 85–143; BP diastolic 49–84
[~2024-08-18] VITALS: Ht 149.9 cm; Wt 62.1 kg
[~2024-08-18 11:54] MED LIST changes: +ALBU90OI INH; +BIOTENE MT; -Isosorbide Mono30 MG; +Isosorbide Mono30 MG PO; +MIRAPEX0.25 M1 PO; -REPATHA SU140 MG/1 M; +TRELEGY ELLIPT1 EACH INH; +TRULICITY0.75 MG/01 SC
[2024-08-18] MEDS ORDERED: INSULANPEN SC (12:24)
[2024-08-18] MEDS ORDERED: TRELEGY ELLIPT1 EACH INH (12:26)
[2024-08-18] MEDS ORDERED: TRAM50 PO (12:26)
[2024-08-18] MEDS ORDERED: XYLIGEL50 ML PO (12:28)
[2024-08-18] MEDS ORDERED: NS 1,000 ML IV ONE ×2 (13:20→13:30)
[2024-08-18] MEDS ORDERED: Nitroglycerin 2 MG/20 ML BTL ONE (13:20)
[2024-08-18] MEDS ORDERED: Heparin Sodium 1000 Units/ML 10ML MDV ONE ×2 (13:20→13:30)
[2024-08-18] MEDS ORDERED: NS 250 ML IV ONE (13:20)
[2024-08-18] MEDS ORDERED: Verapamil HCL 2.5 MG/ML 2ML Injection ONE (13:20)
[2024-08-18] MEDS ORDERED: FentaNYL Citrate 50 MCG/ML 2 ML Injection ONE (13:30)
[2024-08-18] MEDS ORDERED: Midazolam HCl 1MG / ML 2ML Vial ONE (13:30)
[2024-08-18] MEDS ORDERED: Labetalol HCL 5 MG/ML 4ML Injection (Single Dose) ONE (14:16)
--- NOTE | 2024-08-18 14:45 | NUR ---
ASSUMED CARE OF PT. PT AWAKE AND ORIENTED, DENIES CP POST PROCEDURE. MONITOR SR 60'S, B/P 121/56, SPO2 92 % RA. R GROIN NO SWELLING/HEMATOMA, TEGADERM DRSG INTACT; ANGIO SEAL DEPLOYED, RLEl: 1+ X 2.
--- NOTE | 2024-08-18 17:04 | NUR ---
VERBAL AND WRITTEN DISCAHRGE INFORMATION GIVEN TO PATIENT AND PT'S SPOUSE WITH CLEAR UNDERSTANDING. PT OOB TO CHAIR, GROIN CHECKED AFTER PATIENT DRESSED, SITE SOFT, NON-TENDER, WITHOUT HEMATOMA OR BLEEDING. PT ESCORTED OUT VIA W/C AT 1700 TO CARE OF .
== END 2024-08-18 16:00 | disposition home or self-care (01) ==
LOC: MHTC 11:54
DX: I25.709 Atherosclerosis of coronary artery bypass graft(s), unspecified, with unspecified angina pectoris (principal); R94.39 Abnormal result of other cardiovascular function study; R07.9 Chest pain, unspecified; I10 Essential (primary) hypertension; E78.5 Hyperlipidemia, unspecified; I25.2 Old myocardial infarction; E11.51 Type 2 diabetes mellitus with diabetic peripheral angiopathy without gangrene; J44.9 Chronic obstructive pulmonary disease, unspecified; K21.9 Gastro-esophageal reflux disease without esophagitis; Z95.1 Presence of aortocoronary bypass graft; Z79.82 Long term (current) use of aspirin; Z79.899 Other long term (current) drug therapy; Z88.1 Allergy status to other antibiotic agents; Z88.8 Allergy status to other drugs, medicaments and biological substances; Z88.5 Allergy status to narcotic agent; Z87.891 Personal history of nicotine dependence
CPT/HCPCS: 76937; 93459; 99152; 99153; C1760; C1769; C1894; J1644; J2250; J3010; J7030; J7050; Q9967